=== PATIENT | female | born 1970 | race Caucasian/White ===

== ENCOUNTER 2023-02-10 17:43 | Inpatient (IN) | payer OTHER, MEDICAID ==
[~2023-02-10] VITALS: Ht 167.6 cm; Wt 61.7 kg
[2023-02-10 19:14] LABS: CHLORIDE 109 mEq/L (98-107)
[2023-02-10 19:19] LABS: PARTIAL THROMBOPLASTIN TIME 26.6 sec (23.4-31.0); PROTHROMBIN TIME 11.1 sec (9.6-11.0)
[2023-02-10 19:22] LABS: BASOPHILS % 0.2 % (0.0-2.0); EOSINOPHILS % 0.7 % (0.0-5.0); HEMATOCRIT. 28.3 % (36.0-48.0); HEMOGLOBIN. 9.4 g/dL (12.0-16.0); LYMPHOCYTES % 7.8 % (20.0-50.0); MEAN CORPUSCULAR HEMOGLOBIN 31.2 pg (28.0-32.0); MEAN CORPUSCULAR VOLUME 93.8 fL (81.0-99.0); MEAN PLATELET VOLUME 8.4 fl (7.4-10.4); MONOCYTES % 11.2 % (2.0-8.0); NEUTROPHILS % 80.1 % (40.0-76.0); PLATELET 99 x1000/uL (130-400); RED BLOOD CELL COUNT 3.01 mill/uL (4.2-5.4); RED CELL DISTRIBUTION WIDTH 20.1 % (11.6-14.6)
[2023-02-10] MEDS ORDERED: ASPIRIN 81MG TABLET PO ONE (21:15)
[2023-02-11] VITALS (62 sets, daily range): BP systolic 67–125; BP diastolic 30–86
[2023-02-11] MEDS ORDERED: ACETAMINOPHEN 500MG TABLET PO PRN (02:00)
[2023-02-11] MEDS: SODIUM CHLORIDE 0.9% 1,000 ML IV SCH ×4 (04:37→21:44)
[2023-02-11] MEDS ORDERED: CYCL50CA3 PO (05:45)
[2023-02-11] MEDS ORDERED: CYCL10TA21 PO (05:45)
[2023-02-11] MEDS ORDERED: LORA10TA7 PO (05:45)
[2023-02-11] MEDS ORDERED: ACET-2708 PO (05:45)
[2023-02-11] MEDS ORDERED: FERR325T6 PO (05:45)
[2023-02-11] MEDS: FERROUS SULFATE 325MG TABLET PO SCH ×3 (07:20→17:48)
[2023-02-11] MEDS: ONDANSETRON HCL 4MG/2ML INJ IV PRN ×2 (08:15→21:44)
[2023-02-11] MEDS ORDERED: PANTOPRAZOLE SODIUM 40 MG/VIAL IV SCH (09:00)
[2023-02-11] MEDS ORDERED: PHENYLEPHRINE 100 MG in DEXT 5% WATER 240 ML IV PRN (09:00)
[2023-02-11] MEDS ORDERED: SODIUM CHLORIDE 0.9% 500 ML IV NR (09:00)
[2023-02-11] MEDS ORDERED: SODIUM CHLORIDE 0.9% 1,000 ML IV SCH (09:00)
[2023-02-11 09:47] LABS: MEAN CORPUSCULAR HEMOGLOBIN 31.5 pg (28.0-32.0); MEAN CORPUSCULAR VOLUME 99.9 fL (81.0-99.0); MEAN PLATELET VOLUME 9.4 fl (7.4-10.4); PLATELET 127 x1000/uL (130-400); RED BLOOD CELL COUNT 1.92 mill/uL (4.2-5.4); RED CELL DISTRIBUTION WIDTH 20.7 % (11.6-14.6)
[2023-02-11 09:56] LABS: HEMATOCRIT. 19.2 % (36.0-48.0); HEMOGLOBIN. 6.1 g/dL (12.0-16.0)
[2023-02-11 10:36] LABS: PLATELET ESTIMATE SLIGHTLY DECREASED
[2023-02-11] MEDS ORDERED: INFLUENZA VACCINE 05/PF 0.5 ML SYRINGE IM ONE (11:00)
[2023-02-11] MEDS: CEFEPIME 1,000 MG in DEXTROSE 5% WATER 50 ML IV SCH ×2 (13:34→21:57)
[2023-02-11 14:25] LABS: TOTAL IRON BINDING CAPACITY 144 ug/dL (250-450)
[2023-02-11 14:51] LABS: FOLIC ACID (FOLATE) SERUM 15.7 ng/mL (>5.38)
[2023-02-11 15:43] LABS: HEMATOCRIT 24.4 % (36.0-48.0); HEMOGLOBIN 8.3 g/dL (12.0-16.0)
[2023-02-11] MEDS: PANTOPRAZOLE SODIUM 40 MG/VIAL IV SCH (17:18)
[2023-02-11 18:23] LABS: HEMOGLOBIN 7.5 g/dL (12.0-16.0)
[2023-02-12] VITALS (83 sets, daily range): BP systolic 56–159; BP diastolic 35–98
[2023-02-12 00:46] LABS: HEMATOCRIT 16.9 % (36.0-48.0); HEMOGLOBIN 5.8 g/dL (12.0-16.0)
[2023-02-12] MEDS: CEFEPIME 1,000 MG in DEXTROSE 5% WATER 50 ML IV SCH ×2 (08:29→21:00)
[2023-02-12] MEDS: PANTOPRAZOLE SODIUM 40 MG/VIAL IV SCH ×2 (08:29→18:28)
[2023-02-12] MEDS: FERROUS SULFATE 325MG TABLET PO SCH ×3 (08:29→18:29)
[2023-02-12] MEDS: SODIUM CHLORIDE 0.9% 1,000 ML IV SCH ×2 (08:30→18:29)
[2023-02-12 12:16] LABS: HEMATOCRIT 25.9 % (36.0-48.0); HEMOGLOBIN 8.6 g/dL (12.0-16.0)
[2023-02-12 17:33] LABS: HEMATOCRIT 27.9 % (36.0-48.0); HEMOGLOBIN 9.3 g/dL (12.0-16.0)
[2023-02-13] VITALS (7 sets, daily range): BP systolic 112–148; BP diastolic 58–89
[2023-02-13 00:56] LABS: HEMATOCRIT 26.8 % (36.0-48.0)
[2023-02-13] MEDS: SODIUM CHLORIDE 0.9% 1,000 ML IV SCH ×2 (03:30→21:24)
[2023-02-13] MEDS: FERROUS SULFATE 325MG TABLET PO SCH ×3 (09:15→21:28)
[2023-02-13] MEDS: PANTOPRAZOLE SODIUM 40 MG/VIAL IV SCH ×2 (09:15→17:11)
[2023-02-13 10:24] LABS: CHLORIDE 116 mEq/L (98-107)
[2023-02-13 10:26] LABS: INR 1.2; PROTHROMBIN TIME 12.3 sec (9.6-11.0)
[2023-02-13 13:07] LABS: BASOPHILS % 0.5 % (0.0-2.0); EOSINOPHILS % 3.1 % (0.0-5.0); HEMATOCRIT. 26.5 % (36.0-48.0); HEMOGLOBIN. 8.9 g/dL (12.0-16.0); LYMPHOCYTES % 8.5 % (20.0-50.0); MEAN CORPUSCULAR HEMOGLOBIN 29.8 pg (28.0-32.0); MEAN CORPUSCULAR VOLUME 88.9 fL (81.0-99.0); MEAN PLATELET VOLUME 8.4 fl (7.4-10.4); NEUTROPHILS % 73.9 % (40.0-76.0); RED BLOOD CELL COUNT 2.98 mill/uL (4.2-5.4); RED CELL DISTRIBUTION WIDTH 15.4 % (11.6-14.6)
[2023-02-13 13:22] LABS: PLATELET 39 x1000/uL (130-400)
[2023-02-13 13:40] LABS: PLATELET ESTIMATE MARKEDLY DECREASED
[2023-02-13] MEDS: CYCLOPHOSPHAMIDE 50 MG PO SCH (16:30)
[2023-02-13 19:18] LABS: HEMATOCRIT 27.3 % (36.0-48.0); HEMOGLOBIN 9.1 g/dL (12.0-16.0)
[2023-02-13] MEDS: CEFEPIME 1,000 MG in DEXTROSE 5% WATER 50 ML IV SCH (21:23)
[2023-02-14] VITALS (7 sets, daily range): BP systolic 114–127; BP diastolic 58–77
[2023-02-14 06:52] LABS: HEMATOCRIT. 23.8 % (36.0-48.0); MEAN CORPUSCULAR HEMOGLOBIN 29.9 pg (28.0-32.0); MEAN CORPUSCULAR VOLUME 89.3 fL (81.0-99.0); MEAN PLATELET VOLUME 8.2 fl (7.4-10.4); RED BLOOD CELL COUNT 2.66 mill/uL (4.2-5.4); RED CELL DISTRIBUTION WIDTH 15.7 % (11.6-14.6)
[2023-02-14 07:00] LABS: CHLORIDE 113 mEq/L (98-107)
[2023-02-14 07:03] LABS: INR 1.1; PROTHROMBIN TIME 11.4 sec (9.6-11.0)
[2023-02-14 07:35] LABS: PLATELET 37 x1000/uL (130-400)
[2023-02-14] MEDS: CEFEPIME 1,000 MG in DEXTROSE 5% WATER 50 ML IV SCH (08:29)
[2023-02-14] MEDS: FERROUS SULFATE 325MG TABLET PO SCH ×2 (08:29→13:14)
[2023-02-14] MEDS: PANTOPRAZOLE SODIUM 40 MG/VIAL IV SCH ×2 (08:29→16:45)
[2023-02-14] MEDS: CYCLOPHOSPHAMIDE 50 MG PO SCH (08:30)
[2023-02-14] MEDS: SODIUM CHLORIDE 0.9% 1,000 ML IV SCH (08:31)
[2023-02-14 10:35] LABS: PLATELET ESTIMATE MARKEDLY DECREASED
[2023-02-14] MEDS ORDERED: LEVO-65 MT (14:11)
[2023-02-14] MEDS ORDERED: ASCORBIC ACID 500 MG TABLET PO SCH (15:00)
[2023-02-14] MEDS ORDERED: FERROUS SULFATE 325MG TABLET PO SCH (17:00)
== END 2023-02-14 18:45 | disposition home or self-care (01) | DRG 871 ==
LOC: ER 17:43 → 3WST 22:21 → EDBEDREQ 22:24 → EDBEDREQTM 22:24 → CVICU 02-11 09:15 → 5EST 02-12 18:28 → 7WST 02-13 03:36
PROVIDERS: ADMIT Internal Medicine; ATTEND Internal Medicine
PROC: 30233N1 Transfusion of Nonautologous Red Blood Cells into Peripheral Vein, Percutaneous Approach (ICD-10-PCS; principal; 2023-02-11)
PROC: 02HV33Z Insertion of Infusion Device into Superior Vena Cava, Percutaneous Approach (ICD-10-PCS; 2023-02-11)
PROC: B548ZZA Ultrasonography of Superior Vena Cava, Guidance (ICD-10-PCS; 2023-02-11)
DX: A41.9 Sepsis, unspecified organism (principal); E43 Unspecified severe protein-calorie malnutrition; J96.90 Respiratory failure, unspecified, unspecified whether with hypoxia or hypercapnia; K92.2 Gastrointestinal hemorrhage, unspecified; C56.9 Malignant neoplasm of unspecified ovary; A09 Infectious gastroenteritis and colitis, unspecified; D64.9 Anemia, unspecified; J45.909 Unspecified asthma, uncomplicated; Z20.822 Contact with and (suspected) exposure to COVID-19; Z91.041 Radiographic dye allergy status; Z68.22 Body mass index [BMI] 22.0-22.9, adult; Z92.21 Personal history of antineoplastic chemotherapy
CPT/HCPCS: 36415; 36573; 71045; 74176; 80048; 80053; 82607; 82728; 82746; 83540; 83550; 83605; 83880; 84484; 85014; 85018; 85025; 85044; 86850; 86900; 86920; 87426; 90686; 93005; 97166; 99285; C1725; C9113; C9803; J0692; J2405; J7030; J7060; P9016